=== PATIENT | male | born 1965 | race Caucasian/White ===

== ENCOUNTER 2016-11-30 07:38 | Day surgery (SDC) | payer OTHER ==
[2016-11-23 12:59] VITALS: BMI 25.0
[2016-11-30] MEDS ORDERED: PROPOFOL 20 ML ONE ×2 (07:41)
[2016-11-30 13:13] VITALS: TEMP 97.9
[2016-11-30 13:21] VITALS: BP 114/59; PULSE 49
--- NOTE | 2016-12-01 14:11 | PATH ---
Surgical Pathology Report Patient Name: FRANCISCO SIMENTAL [facility]. Rec. #: [id number] /Age/Gender: 1965 (Age: 51) / M Account: [id number] [facility] Taken: 11/30/2016 Received: 11/30/2016 Reported: 12/01/2016 Physicians: Kieran Person M.D. Specimen(s) Received A: BX COLON TRANSVERSE B: BX 25CM COLON Clinical History Rule out colon cancer Polyps Final Diagnosis A. TRANSVERSE, BIOPSY: HYPERPLASTIC POLYP. B. 25 CM, BIOPSY: TUBULAR ADENOMA. Electronically Signed Leann Correa M.D. Gross Description A. Received in formalin, labeled "transverse" is a kear[place], irregular portion of soft tissue measuring 0.1 cm. in greatest dimension. The specimen is submitted in toto in one cassette. B. Received in formalin, labeled "25 cm" is a kearney, polypoid portion of soft tissue measuring 1.0 x 0.6 x 0.3 cm. The specimen is submitted in toto in one cassette. 11/30/2016 saudi11/30/2016
== END 2016-11-30 09:55 | disposition home or self-care (01) ==
LOC: FASU-ENDO 07:38
PROVIDERS: ATTEND Internal Medicine Gastroenterology
PROC: 0DBN8ZX Excision of Sigmoid Colon, Via Natural or Artificial Opening Endoscopic, Diagnostic (ICD-10-PCS; principal; 2016-11-30 08:27)
PROC: 0DBL8ZX Excision of Transverse Colon, Via Natural or Artificial Opening Endoscopic, Diagnostic (ICD-10-PCS; 2016-11-30 08:27)
DX: Z12.11 Encounter for screening for malignant neoplasm of colon (principal); K63.5 Polyp of colon; D12.5 Benign neoplasm of sigmoid colon; K57.30 Diverticulosis of large intestine without perforation or abscess without bleeding
CPT/HCPCS: 88305-TC